=== PATIENT | female | born 2000 | race Caucasian/White ===

== ENCOUNTER 2022-10-13 11:20 | Outpatient (CLI) | payer MEDICAID, SELFPAY ==
--- NOTE | ~2022-10-13 | XR_ITS ---
AP view of the pelvis and AP and lateral views of the left hip Clinical history: Pain Findings: No acute fracture or dislocation is seen. Osseous alignment is anatomic. Bilateral hip and SI joint spaces are preserved. Soft tissues are unremarkable. Impression: No significant abnormality is seen. Reviewed, dictated and finalized at [facility]. Impression: No significant abnormality is seen.
== END 2022-10-13 11:21 | disposition home or self-care (01) ==
LOC: CHSIMG 11:26
PROVIDERS: PCP Nurse Practitioner Family; Visit Provider Nurse Practitioner Family
DX: M25.552 Pain in left hip (principal)
CPT/HCPCS: 73502

== ENCOUNTER 2022-10-28 14:59 | Outpatient (RCR) | payer MEDICAID, OTHER, SELFPAY ==
--- NOTE | 2022-10-28 16:05 | PTOPEVAL1 ---
Assessment and note entered by JT File, PT Evaluation Information Assessment Status Evaluation Diagnosis L hip pain, L knee instability Onset 10/20/22 Subjective Information patient reports she fell at work. she reports she was working at [employer] at the time of injury. she reports she slipped in a pile of flour. she reports she landed on the L hip. she reports to complicate matters she has a pre-existing injury to the L knee (valerie on her, give out on steps, instability when standing). she reports she has had this knee issue for a few months. regarding the L hip, she reports she has increased pain with sitting and standing for 1 hour or more. she reports heat helps with the pain, and pain meds did help. she reports she works at [employer] now. she reports she is unable to lay on the L side to sleep. prior to the fall, she reports she was having an electric pain in the L hip. Reported Pain Level Pain Score 9,7: Self Report Assessment PT Clinical Summary ms. lees is a 22 yo female who presents to skilled PT services for evaluation of L hip pain and L knee instability. she presents this date with signs and symptoms of lumbar spinal facet hypertropy, L greater trochanteric bursitis, and possible lateral meniscus injury to the L knee. she has decreased L hip rom, decreased L hip strength, L posterior hip/lower back pain, antalgic gait, and instability of the L knee. she would benefit from continued skilled PT services to improve her objective deficits and return to prior level functional activity performance and quality of life. Plan of Care Interventions Electrical Stimulation,Gait Training,Hot Pack/Cold Pack,Manual Therapy,Neuro Re-education,Patient/ Caregiver Educati,Therapeutic Activities, Therapeutic Exercise PT Services Indicated Yes Treatment Frequency and 3x weekly for 12 visits Duration These treatments will address the objective and functional deficits as defined above. The patient will be advanced safely and appropriately in order for the patient to progress towards his/her prior level of function. Additional exercises will be introduced and as well as a comprehensive home exercise program upon discharge, if needed, ?to ensure carryover of functional gains achieved in the clinic. This treatment plan has been reviewed and agreement upon by the patient.
--- NOTE | 2022-12-30 13:47 | PTOPDC ---
Assessment and note entered by JT File, PT Evaluation Information Assessment Status Discharge Diagnosis L hip pain, L knee instability Onset 10/20/22 Subjective Information patient reports she feels no better from therapy . she reports she feels the exercises have increased her pain in the lower back. Reported Pain Level Pain Score 8: Self Report Assessment PT Clinical Summary mrs. lees presents to skilled PT services for her 8th visit for lower back pain. she presents today having achieved for no goals for skilled PT, and feeling weorse in the lower back since starting therapy. she will DC skilled PT today and return to MD for follow up and to plan next steps in her care. Plan of Care PT Services Indicated Yes
== END 2022-12-30 14:13 | disposition home or self-care (01) ==
LOC: CHSPT 14:59
PROVIDERS: PCP Nurse Practitioner Family; Visit Provider Nurse Practitioner Family
DX: M25.552 Pain in left hip (principal); M25.362 Other instability, left knee
CPT/HCPCS: 36415; 80053; 80061; 82306; 83036; 84146; 84439; 84443; 85025; 96372; 97014; 97110; 97140; 97162; 99283; A9270; G0283; J1170

== ENCOUNTER 2022-11-09 14:01 | Emergency (ER) | payer MEDICAID, SELFPAY ==
[2022-11-09 14:01] VITALS: BP 138/92; PULSE 109; RESP 20; TEMP 36.9; O2SAT 96
--- NOTE | 2022-11-09 14:08 | ED.BACK ---
HPI - Back Pain/Injury General Chief Complaint: Back Pain/Injury Stated Complaint: right lower back pain Time Seen by Provider: 11/09/22 14:06 Source: patient Mode of arrival: ambulatory Limitations: no limitations History of Present Illness HPI Narrative: 22-year-old female with anxiety/depression, borderline personality disorder, PTSD, hemorrhoid/ aphasia, chronic low back pain with sciatica presents to the ER with -- low back pain which radiates down both lower extremities . --numbness and tingling of both lower extremities. No sensory motor loss. No bladder or bowel involvement. The patient was brought in by wheelchair which she was able to get up on the bed and get off the bed without any difficulty. The patient was prescribed oxycodone by primary care physician. She ran out of her medicines. She presents to the ER for pain management. The patient is scheduled to have an MRI tomorrow. MD elicited complaint: back pain Pertinent past history: prior back pain Onset (ago): day(s) Timing: constant Severity: moderate Similar Symptoms Previously: Yes Quality: aching Location: lumbar spine Radiation: left leg below the knee and right leg below the knee Exacerbating factors: movement Relieving factors: immobilization Associated symptoms: denies other symptoms Related Data Home Medications Medication Instructions Recorded Confirmed omeprazole 40 mg capsule,delayed 40 mg PO DAILY 10/13/22 11/09/22 release ondansetron HCl 4 mg tablet 4 mg PO Q8H 10/13/22 11/09/22 Allergies Allergy/AdvReac Type Severity Reaction Status Date / Time naproxen AdvReac Nausea Verified 11/09/22 14:09 monistat AdvReac Severe Irritable Uncoded 11/03/22 15:50 Review of Systems Review of Systems: All systems reviewed & are unremarkable except as noted in HPI and below Constitutional: Constitutional: Reports as per HPI and Reports no additional constitutional complaints Eyes: Eyes: Reports as per HPI and Reports no additional eye complaints ENT: Reports system reviewed and no additional complaints, except as documented and Reports as per HPI Cardiovascular: Cardiovascular: Reports as per HPI and Reports no additional cardiovascular complaints Respiratory: Respiratory: Reports as per HPI and Reports no additional respiratory complaints Gastrointestinal: Gastrointestinal: Reports as per HPI and Reports no additional gastrointestinal complaints Musculoskeletal: Musculoskeletal: Reports no additional musculoskeletal complaints, Reports as per HPI and Reports back pain Integumentary/Breasts: Skin/Breast: Reports system reviewed and no additional complaints, except as docu and Reports as per HPI Neurologic: Reports system reviewed and no additional complaints, except as documented, Reports as per HPI and Reports numbness Comments: Numbness both upper extremities Psychiatric: Psychiatric: Reports no additional psychiatric complaints, Reports as per HPI, Reports anxiety and Reports depression Endocrine: Endocrine: Reports no additional endocrine complaints and Reports as per HPI Hematologic/Lymphatic: Hematologic/Lymphatic: Reports no additional hematologic/lymphatic complaints and Reports as per HPI Allergic/Immunologic: Allergic/Immunologic: Reports no additional allergic/immunologic complaints and Reports as per HPI PMFSH Past Medical History Medical History ADHD Anxiety Borderline personality disorder Depression Hemorrhoids PTSD (post-traumatic stress disorder) Social History Social History Smoking status: Former smoker Tobacco type: e-cigarettes/vaping Smoking end date: 09/19/22 Alcohol intake: never Substance use: current Substance use type: marijuana Living arrangements: with family Occupation/Education: occupation Gender identity (if verbalized by the patient): Female Agree to blood produc
[2022-11-09] MEDS: HYDROmorphone HCL INJ (*CRX) 2 MG/ML VIAL 1 MG IM (14:37)
[2022-11-09] MEDS: ONDANSETRON HCL ODT 4 MG TABLET PO (14:37)
== END 2022-11-09 14:45 | disposition home or self-care (01) ==
PROVIDERS: Emergency Provider Internal Medicine Critical Care Medicine; PCP Nurse Practitioner Family
DX: M54.42 Lumbago with sciatica, left side (principal); F41.9 Anxiety disorder, unspecified; F32.A Depression, unspecified; F60.3 Borderline personality disorder; F43.10 Post-traumatic stress disorder, unspecified; Z87.891 Personal history of nicotine dependence; F12.90 Cannabis use, unspecified, uncomplicated
CPT/HCPCS: 96372; 99283; A9270; J1170

== ENCOUNTER 2022-11-10 08:53 | Outpatient (CLI) | payer MEDICAID, SELFPAY ==
--- NOTE | ~2022-11-10 | MR_ITS ---
MRI of the left hip Clinical history: Pain Technique: Coronal T1-weighted, T2-weighted, and proton-density fat-sat images, and axial T1-weighted and proton-density fat-sat images were acquired through the pelvis. Coronal T2-weighted images and c oronal, axial, and sagittal proton-density fat-sat images were acquired through the left hip. Follow ing intravenous administration of 20 cc MultiHance gadolinium, T1-weighted fat-sat imaging was perfor med in the axial and coronal planes. Findings: There is no fracture, avascular necrosis, transient suppresses of either hip. Bone marrow s ignals of the proximal femora and visual is pelvic bones are unremarkable. Bilateral hip and SI joint spaces are preserved. No erosive or degenerative change seen. No joint effusion evident. No acetabul ar labral tear identified. Visualized musculature about the pelvis and left hip is unremarkable. No muscle atrophy or edema iden tified. No soft tissue mass or fluid collection. No evidence for bursitis. Visualized tendons are int act. No abnormal postcontrast enhancement identified. IMPRESSION: Unremarkable exam. Reviewed, dictated and finalized at location M. IMPRESSION: Unremarkable exam.
--- NOTE | ~2022-11-10 | MR_ITS ---
MRI of the lumbar spine Clinical History: Back pain, status post fall Technique: Axial T2-weighted images, and sagittal T1-weighted, T2-weighted, and T2 fat-sat images wer e acquired. Following intravenous administration of 20 cc MultiHance gadolinium, T1-weighted fat-sat imaging was performed in the axial and sagittal planes. Findings: There is no fracture or subluxation of the lumbar spine. Vertebral bodies maintain normal h eight and alignment. No bone marrow signal abnormality seen. At L1-L2, L2-L3, L3-L4, intervertebral discs maintain normal signal and position. No disc bulge or he rniation at these levels. No spinal canal stenosis or neural foraminal narrowing at these levels. At L4-L5, there is mild central disc protrusion with mild disc desiccation. There is mild facet arthr opathy. No spinal canal stenosis or neural foraminal narrowing. At L5-S1, there is no disc bulge or herniation. No spinal canal stenosis or neural foraminal narrowin g. Paravertebral soft tissues are unremarkable. No abnormal postcontrast enhancement identified. Impression: Minimal degenerative change at the L4-L5 level, as above. Reviewed, dictated and finalized at location . Impression: Minimal degenerative change at the L4-L5 level, as above.
== END 2022-11-10 08:54 | disposition home or self-care (01) ==
LOC: CHSIMG 08:56
PROVIDERS: PCP Nurse Practitioner Family; Visit Provider Nurse Practitioner Family
DX: G95.9 Disease of spinal cord, unspecified (principal)
CPT/HCPCS: 72158; 73723; A9577

== ENCOUNTER 2022-11-28 10:14 | Emergency (ER) | payer OTHER, SELFPAY ==
--- NOTE | ~2022-11-28 | XR_ITS ---
XR lumbar spine 2-3V 11/28/2022 10:49 Indication: Low back pain Procedure: 3 views lumbar spine Comparison: No prior studies for comparison. Findings: Vertebral body and disc heights are preserved. No fracture, subluxation or dislocation. No evidence for spondylolisthesis. Pedicles intact. Sacral foramen are symmetric. Normal lumbar alignmen t. Impression: 1: No acute abnormality of the lumbar spine. Reviewed, dictated and finalized at location [] Impression: 1: No acute abnormality of the lumbar spine.
[2022-11-28 10:14] VITALS: BP 103/74; PULSE 114; RESP 18; TEMP 36.5; O2SAT 96
--- NOTE | 2022-11-28 10:28 | ED.GENADULT ---
HPI - General Adult General Chief complaint: Back Pain/Injury Stated complaint: lower back pain and numbness in legs Time Seen by Provider: 11/28/22 10:23 History of Present Illness HPI narrative: Hal is a 22F with a PMH of mood/personality disorder and degenerative disc disease that presented to the ED with back pain. She has had chronic back pain but she had a ground level fall at work a few days ago Since that time she has had worsening numbness in her right leg. There is no paralysis or loss of bowl or bladder control. It is not helped with her home duloxetine, Flexeril, or hydrocodone. Related Data Home Medications Medication Instructions Recorded Confirmed ondansetron HCl 4 mg tablet 4 mg PO Q8H 10/13/22 11/28/22 Allergies Allergy/AdvReac Type Severity Reaction Status Date / Time naproxen AdvReac Nausea Verified 11/28/22 10:24 monistat AdvReac Severe Irritable Uncoded 11/21/22 22:38 Review of Systems Review of Systems: All systems reviewed & are unremarkable except as noted in HPI and below [facility] Past Medical History Medical History ADHD Anxiety Borderline personality disorder Depression Hemorrhoids PTSD (post-traumatic stress disorder) Social History Social History Smoking status: Former smoker Tobacco type: e-cigarettes/vaping Smoking end date: 09/19/22 Alcohol intake: never Substance use: current Substance use type: marijuana Living arrangements: with family Occupation/Education: occupation Gender identity (if verbalized by the patient): Female Agree to blood products: Yes Exam Const: General: healthy appearing and no acute distress Nutritional Appearance: well nourished Orientation/consciousness: patient oriented x3 HENMT: Head: normal to inspection Ears: external ears normal Face/Nose/Sinus: Normal external nose present Eyes: Conjunctivae: conjunctivae normal Pupils: Equal, round and reactive pupils present EOM: EOMs intact bilaterally Neck: Neck: normal visual inspection Chest: Chest palpation & inspection: normal inspection of the chest Resp: Effort & Inspection: normal respiratory effort Cardio: Rate: regular rate Back/Spine/Pelvis: Other: TTP in the lumbar midline and the paraspinal musculature Skin: General skin exam: normal color Rashes: no rashes Neuro: General: patient oriented x3 and moves all extremities Cranial nerves: Yes Nystagmus not present Other: 5/5 strength throughout the lower extremities She did have sensation throughout the right lower extremity but stated it felt numb Extrem: General: normal to inspection Psych: Mental Status: mental status grossly normal Course Course Emergency Course: Ordered radiographs given new fall and gabapentin. XR lumbar spine 2-3V 11/28/2022 10:49 Indication: Low back pain Procedure: 3 views lumbar spine Comparison: No prior studies for comparison. Findings: Vertebral body and disc heights are preserved. No fracture, subluxation or dislocation. No evidence for spondylolisthesis. Pedicles intact. Sacral foramen are symmetric. Normal lumbar alignment. Impression: 1: No acute abnormality of the lumbar spine. Vital Signs Vital signs: Vital Signs Temperature 97.7 F 11/28/22 10:14 Pulse Rate 114 H 11/28/22 10:14 Respiratory Rate 18 11/28/22 10:14 Blood Pressure 103/74 11/28/22 10:14 Pulse Oximetry 96 11/28/22 10:14 Oxygen Delivery Room Air 11/28/22 10:14 Temperature 97.7 F 11/28/22 10:14 Pulse Rate 90 11/28/22 11:34 Respiratory Rate 16 11/28/22 11:34 Blood Pressure 120/82 11/28/22 11:34 Pulse Oximetry 97 11/28/22 11:34 Oxygen Delivery Room Air 11/28/22 11:34 Medical Decision Making Vital Signs Vital Signs: Vital Signs Temperature 97.7 F 11/28/22 10:14 Pulse Rate 114 H 11/28/22 10:14 Respiratory Rate 18
[2022-11-28] MEDS: GABAPENTIN 300 MG CAPSULE 600 MG PO (10:41)
[2022-11-28 11:34] VITALS: BP 120/82; PULSE 90; RESP 16; O2SAT 97
== END 2022-11-28 11:25 | disposition home or self-care (01) ==
PROVIDERS: Emergency Provider Family Medicine; PCP Nurse Practitioner Family
DX: M54.30 Sciatica, unspecified side (principal); Z87.891 Personal history of nicotine dependence
CPT/HCPCS: 72100; 99283; A9270

== ENCOUNTER 2022-12-02 10:47 | Outpatient (CLI) | payer OTHER, SELFPAY ==
[2022-12-02 11:12] LABS: Basophils Absolute Auto 0.05 K/mm3 (0.00-0.10); Basophils Percent Auto 0.6 % (0.0-1.0); Eosinophils Absolute Auto 0.29 K/mm3 (0.02-0.50); Eosinophils Percent Auto 3.6 % (1.0-6.0); Hematocrit 40.5 % (35.0-49.0); Hemoglobin 13.4 g/dL (12.0-15.0); Immature Granulocyte Absolute 0.02 K/mm3 (0.00-0.00); Immature Granulocyte Percent A 0.2 % (0.0-0.0); Lymphocytes Absolute Auto 1.93 K/mm3 (1.10-4.50); Mean Corpuscular HGB Conc 33.1 g/dL (32.0-36.0); Mean Corpuscular Hemoglobin 29.7 pg (27.0-31.0); Mean Corpuscular Volume 89.8 fL (78.0-102.0); Mean Platelet Volume 9.8 fl (9.2-11.8); Monocytes Absolute Auto 0.42 K/mm3 (0.10-0.90); Monocytes Percent Auto 5.2 % (2.0-11.0); Neutrophils Absolute Auto 5.3 K/mm3 (1.7-7.2); Neutrophils Percent Auto 66.4 % (50.0-70.0); Platelet Count Result 275 K/mm3 (150-420); Red Blood Count 4.51 M/mm3 (4.20-5.40); Red Cell Distribution Width 12.7 % (11.6-14.4)
[2022-12-02 11:24] LABS: Hemoglobin A1C 4.9 % (<5.7)
[2022-12-02 12:25] LABS: Alanine Aminotransferase 57 U/L (14-59); Albumin Level 3.8 g/dL (3.4-5.0); Alkaline Phosphatase 90 U/L (46-116); Anion Gap 10 mmol/L (8-16); Aspartate Amino Transferase 28 U/L (15-37); Bilirubin,Total 0.3 mg/dL (0.00-1.00); Blood Urea Nitrogen 11 mg/dL (7-18); Carbon Dioxide 26 mmol/L (21-32); Chloride 104 mmol/L (98-108); Cholesterol 157 mg/dL (0-200); Estimated Glomerular Filt Rate > 60; Free T4 Free Thyroxine 0.78 ng/dL (0.76-1.46); Glucose 93 mg/dL (70-99); HDL Direct 35 mg/dL (40-60); LDL Cholesterol Calculated 102 mg/dL (<130); Osmolality Calculated 289 mOsm/kg (285-295); Potassium 4.2 mmol/L (3.5-5.1); Sodium 140 mmol/L (136-145); Thyroid Stimulating Hormone 1.51 uIU/mL (0.36-3.74); Total Protein 6.8 g/dL (6.4-8.2); Triglycerides 99 mg/dL (0-150)
[2022-12-06 23:53] LABS: Vitamin D 25 Hydroxy 26 ng/mL (30-100)
[2022-12-07 14:51] LABS: Prolactin 23.2 ng/mL (***)
== END 2022-12-02 10:48 | disposition home or self-care (01) ==
LOC: CHSLAB 10:52
PROVIDERS: PCP Nurse Practitioner Family
DX: Z79.899 Other long term (current) drug therapy (principal)
CPT/HCPCS: 36415; 80053; 80061; 82306; 83036; 84146; 84439; 84443; 85025

== ENCOUNTER 2022-12-22 16:20 | Emergency (ER) | payer OTHER, SELFPAY ==
[2022-12-22 16:22] VITALS: BP 116/88; PULSE 88; RESP 17; TEMP 36.6; O2SAT 98
--- NOTE | 2022-12-22 16:41 | ED.EXTPRO ---
HPI - Extremity Problem General Chief complaint: Extremity Problem,Nontraumatic Stated complaint: leg spasms Time Seen by Provider: 12/22/22 16:22 Source: patient and family Mode of arrival: ambulatory Limitations: no limitations History of Present Illness HPI Narrative: This is a 22-year-old female with some history of psychological issues presents with cramping and twitching in her lower extremities bilaterally started the last couple days and intensified over the last few hours patient states that she has not been drinking fluids that she drinks only Tea otherwise there is no chest pain no shortness of breath no fever chills with no nausea or vomiting no diarrhea constipation. Complaint: other Onset (ago): day(s) Pain Consistency: intermittent Location: lower extremity Related Data Home Medications Medication Instructions Recorded Confirmed ondansetron HCl 4 mg tablet 4 mg PO Q8H 10/13/22 12/22/22 Allergies Allergy/AdvReac Type Severity Reaction Status Date / Time naproxen AdvReac Nausea Verified 12/22/22 16:21 monistat AdvReac Severe Irritable Uncoded 12/22/22 16:21 Review of Systems Review of Systems: All systems reviewed & are unremarkable except as noted in HPI and below PMFSH Past Medical History Medical History ADHD Anxiety Borderline personality disorder Depression Hemorrhoids PTSD (post-traumatic stress disorder) Social History Social History Smoking status: Current every day smoker (marijuana) Tobacco type: e-cigarettes/vaping Smoking end date: 09/19/22 Alcohol intake: never Substance use: current Substance use type: marijuana Living arrangements: with family Occupation/Education: occupation Gender identity (if verbalized by the patient): Female Agree to blood products: Yes Exam Const: General: healthy appearing Nutritional Appearance: well nourished Orientation/consciousness: patient oriented x3 Limitations: no limitations HENMT: Head: normal to inspection Neck: Neck: normal visual inspection, no lymphadenopathy and no meningeal signs Chest: Chest palpation & inspection: normal inspection of the chest Resp: Effort & Inspection: normal respiratory effort Auscultation: clear to auscultation bilaterally Cardio: Rate: regular rate Rhythm: regular rhythm : General: Yes bladder normal to palpation Skin: General skin exam: normal color Rashes: no rashes Wounds: no wounds Neuro: General: patient oriented x3, moves all extremities and no meningeal signs Extrem: General: normal to inspection, no clubbing, cyanosis or edema and no pedal edema Psych: Mental Status: mental status grossly normal Affect: normal affect Course Course Emergency Course: Labs including electrolytes were reviewed with the magnesium and CMP and a CK level and reviewed with patient, currently no nausea vomiting will start IV fluids and give her a L of normal saline. Vital Signs Vital signs: Vital Signs Temperature 36.6 C 12/22/22 16:22 Pulse Rate 88 12/22/22 16:22 Respiratory Rate 17 12/22/22 16:22 Blood Pressure 116/88 12/22/22 16:22 Pulse Oximetry 98 12/22/22 16:22 Oxygen Delivery Room Air 12/22/22 16:22 Temperature 36.6 C 12/22/22 16:22 Pulse Rate 88 12/22/22 16:22 Respiratory Rate 17 12/22/22 16:22 Blood Pressure 116/88 12/22/22 16:22 Pulse Oximetry 98 12/22/22 16:22 Oxygen Delivery Room Air 12/22/22 16:22 Critical Care Time Critical Care Time Critical Care Time: No Discharge Plan Discharge Clinical Impression: Dehydration Patient Disposition: Home, Self-Care Condition: Stable Instructions: Antibiotic Form, Dehydration (ED) Additional Instructions: advised to drink plenty of water and follow up with primary for further evaluation and treatment. Prescriptions: No Action gabapentin 300
[2022-12-22] MEDS: SODIUM CHLORIDE 0.9% IV 1,000 ML 999 ML IV CONT (16:51)
[2022-12-22 17:04] LABS: Alanine Aminotransferase 497 U/L (14-59); Alkaline Phosphatase 80 U/L (46-116); Anion Gap 9 mmol/L (8-16); Aspartate Amino Transferase 182 U/L (15-37); Bilirubin,Total 0.6 mg/dL (0.00-1.00); Blood Urea Nitrogen 9 mg/dL (7-18); Calcium 9.1 mg/dL (8.5-10.1); Carbon Dioxide 27 mmol/L (21-32); Chloride 104 mmol/L (98-108); Creatine Kinase 220 U/L (26-192); Estimated Glomerular Filt Rate > 60; Glucose 101 mg/dL (70-99); Magnesium 2.2 mg/dL (1.8-2.4); Osmolality Calculated 288 mOsm/kg (285-295); Sodium 140 mmol/L (136-145); Total Protein 7.9 g/dL (6.4-8.2)
[2022-12-22 17:37] VITALS: BP 129/75; PULSE 81; RESP 17; TEMP 36.7; O2SAT 98
== END 2022-12-22 17:40 | disposition home or self-care (01) ==
PROVIDERS: Emergency Provider Emergency Medicine; PCP Nurse Practitioner Family
DX: E86.0 Dehydration (principal); F17.290 Nicotine dependence, other tobacco product, uncomplicated
CPT/HCPCS: 36415; 80053; 82550; 83735; 96360; 97014; 97110; 97140; 99283; G0283; J7030

== ENCOUNTER 2022-12-27 15:06 | Outpatient (CLI) | payer OTHER, SELFPAY ==
[2022-12-27 15:23] LABS: Basophils Absolute Auto 0.06 K/mm3 (0.00-0.10); Basophils Percent Auto 0.6 % (0.0-1.0); Eosinophils Absolute Auto 0.19 K/mm3 (0.02-0.50); Hematocrit 42.9 % (35.0-49.0); Hemoglobin 14.5 g/dL (12.0-15.0); Immature Granulocyte Absolute 0.02 K/mm3 (0.00-0.00); Immature Granulocyte Percent A 0.2 % (0.0-0.0); Lymphocytes Absolute Auto 2.44 K/mm3 (1.10-4.50); Lymphocytes Percent Auto 25.4 % (18.0-42.0); Mean Corpuscular HGB Conc 33.8 g/dL (32.0-36.0); Mean Corpuscular Hemoglobin 30.3 pg (27.0-31.0); Mean Corpuscular Volume 89.7 fL (78.0-102.0); Mean Platelet Volume 9.8 fl (9.2-11.8); Monocytes Absolute Auto 0.53 K/mm3 (0.10-0.90); Monocytes Percent Auto 5.5 % (2.0-11.0); Neutrophils Absolute Auto 6.4 K/mm3 (1.7-7.2); Neutrophils Percent Auto 66.3 % (50.0-70.0); Platelet Count Result 347 K/mm3 (150-420); Red Blood Count 4.78 M/mm3 (4.20-5.40); White Blood Count 9.6 K/mm3 (4.8-10.8)
[2022-12-27 15:33] LABS: Bilirubin Urine Negative (Negative); Blood Urine Negative (Negative); Color Urine Yellow (Yellow); Glucose Urine UA Negative (Negative); Ketones Urine Trace (Negative); Leukocyte Esterase Ur Trace (Negative); Nitrate Urine Negative (Negative); Protein Urine Negative (Negative); Specific Grav Ur 1.025 (1.010-1.020); Urobilinogen Urine 0.2 mg/dL (0.2-1.0)
[2022-12-27 15:47] LABS: Add Urine Microscopic? YES; Appearance Urine Cloudy (Clear); Bacteria Urine 2+ /hpf; RBC Urine None seen /hpf (0-2); Squamous Epithelial Cell Urine Moderate /hpf (Few); WBC Urine 0-3 /hpf (0-3)
[2022-12-27 15:52] LABS: Amphetamine Screen Urine Negative (Negative); Barbiturate Screen Urine Negative (Negative); Benzodiazepines Screen Urine Negative (Negative); Cannabinoid Screen Urine Positive (Negative); Cocaine Screen Urine Negative (Negative); Methadone Screen Urine Negative (Negative); Opiate Screen Urine Negative (Negative); Phencyclidine Screen Urine Negative (Negative)
[2022-12-27 16:12] LABS: Alanine Aminotransferase 211 U/L (14-59); Albumin Level 4.3 g/dL (3.4-5.0); Alkaline Phosphatase 88 U/L (46-116); Anion Gap 7 mmol/L (8-16); Aspartate Amino Transferase 46 U/L (15-37); Bilirubin,Total 0.5 mg/dL (0.00-1.00); Blood Urea Nitrogen 10 mg/dL (7-18); Calcium 9.4 mg/dL (8.5-10.1); Carbon Dioxide 29 mmol/L (21-32); Chloride 104 mmol/L (98-108); Estimated Glomerular Filt Rate > 60; Ferritin 52 ng/mL (8-252); Glucose 91 mg/dL (70-99); Lipase 20 U/L (16-77); Osmolality Calculated 289 mOsm/kg (285-295); Potassium 3.7 mmol/L (3.5-5.1); Sodium 140 mmol/L (136-145); Total Protein 7.6 g/dL (6.4-8.2)
[2022-12-27 16:13] LABS: CRP < 0.5 mg/dL (0.0-0.9)
[2022-12-31 15:22] LABS: Hepatitis A Antibody IgM Nonreactive; Hepatitis B Core Antibody Nonreactive (Nonreactive); Hepatitis B Surface Antigen Nonreactive (Nonreactive); Hepatitis C Virus Antibody Nonreactive
== END 2022-12-27 15:07 | disposition home or self-care (01) ==
PROVIDERS: PCP Nurse Practitioner Family; Visit Provider Nurse Practitioner Family
DX: R74.8 Abnormal levels of other serum enzymes (principal); R25.1 Tremor, unspecified
CPT/HCPCS: 36415; 80053; 80074; 80307; 81001; 82728; 83690; 85025; 86140; 97110

== ENCOUNTER 2022-12-29 07:43 | Outpatient (CLI) | payer OTHER, SELFPAY ==
--- NOTE | ~2022-12-29 | US_ITS ---
Abdominal Sonogram: Real-time sonographic imaging of the abdomen was performed. Clinical History: Abnormal serum enzyme levels Findings: The liver appears echogenic, with no evidence of mass lesion or bile duct dilatation. Main portal vein demonstrates normal direction of flow. The spleen is normal in size without evidence of focal lesion. The gallbladder is well distended, and appears normal with no evidence of gallstone or wall thickening. The common bile duct measures 4 mm. The visualized pancreas, aorta, and IVC are un remarkable. The right kidney measures 9.5 cm in length and the left kidney measures 10.2 cm. There is no hydronephrosis or renal calculus. Impression: Diffuse fatty infiltration of the liver. Reviewed, dictated and finalized at location M. Impression: Diffuse fatty infiltration of the liver.
== END 2022-12-29 07:44 | disposition home or self-care (01) ==
LOC: CHSIMG 07:44
PROVIDERS: PCP Nurse Practitioner Family; Visit Provider Nurse Practitioner Family
DX: R74.8 Abnormal levels of other serum enzymes (principal); K76.0 Fatty (change of) liver, not elsewhere classified
CPT/HCPCS: 76700

== ENCOUNTER 2022-12-30 15:44 | Outpatient (CLI) | payer OTHER, SELFPAY ==
[2022-12-30 16:18] LABS: NT Pro B Type Natriuretic Pept 27 pg/mL (0-125)
[2023-01-03 20:12] LABS: CK-BB None Detected (None Detected); CK-MB 0 % (<5); CK-MM 100 % (95-100)
== END 2022-12-30 15:45 | disposition home or self-care (01) ==
LOC: CHSLAB 15:46
PROVIDERS: PCP Nurse Practitioner Family; Visit Provider Nurse Practitioner Family
DX: R74.8 Abnormal levels of other serum enzymes (principal)
CPT/HCPCS: 36415; 82550; 82552; 83880; 97014; 97110; G0283

== ENCOUNTER 2023-01-02 09:07 | Outpatient (CLI) | payer OTHER, SELFPAY ==
--- NOTE | 2023-01-02 09:15 | ECG_ITS ---
Measurements Intervals [place] Rate: 84 P: 20 TX: 132 QRS: 49 QRSD: 92 T: 44 QT: 360 QTc: 426 Interpretive Statements SINUS RHYTHM BASELINE WANDER- V4-V6 NORMAL ECG NO PREVIOUS ECG AVAILABLE FOR COMPARISON Electronically Signed On 01-02-2023 9:37:29 CDT by Karthikeyan Polk D.O.
== END 2023-01-02 09:08 | disposition home or self-care (01) ==
LOC: CHSCARD 09:09
PROVIDERS: PCP Nurse Practitioner Family; Visit Provider Nurse Practitioner Family
DX: R74.8 Abnormal levels of other serum enzymes (principal)
CPT/HCPCS: 93005

== ENCOUNTER 2023-01-18 15:16 | Outpatient (NON) | payer OTHER, SELFPAY | END 2023-01-18 15:17 | disposition home or self-care (01) | LOC: CHSLAB 15:17 | PROVIDERS: Visit Provider Nurse Practitioner Family | DX: R21 Rash and other nonspecific skin eruption (principal) | CPT/HCPCS: 87070; 87075; 87205 ==

== ENCOUNTER 2023-02-02 20:21 | Emergency (ER) | payer OTHER, SELFPAY ==
[2023-02-02 20:29] VITALS: BP 136/90; PULSE 91; RESP 18; TEMP 37; O2SAT 98
[2023-02-02] MEDS: KETOROLAC 30 MG/ML VIAL (*BKC) IV PUSH (20:54)
[2023-02-02] MEDS: ONDANSETRON INJ 4 MG/2 ML VIAL IV PUSH (21:00)
[2023-02-02] MEDS: SODIUM CHLORIDE 0.9% IV 1,000 ML 999 ML IV CONT (21:00)
--- NOTE | 2023-02-02 21:18 | ED.NAVMDI ---
HPI - Nausea/Vomiting/Diarrhea General Chief complaint: Nausea/Vomiting/Diarrhea Stated complaint: vomiting/lower flank pain Time Seen by Provider: 02/02/23 20:42 Source: patient Mode of arrival: ambulatory Limitations: no limitations History of Present Illness HPI Narrative: this is a 22-year-old female with a history of sciatic back pain presents tonight with some nausea vomiting and diarrhea and patient states that with the nausea and episodes of vomiting she aggravated her sciatic nerve, vitals are stable there is no fever chills no abdominal pain no flank pain. MD elicited complaint: nausea, vomiting and diarrhea Related Data Home Medications Medication Instructions Recorded Confirmed ondansetron HCl 4 mg tablet 4 mg PO Q8H 10/13/22 02/01/23 trazodone 100 mg tablet 100 mg PO QHS PRN 12/27/22 02/01/23 venlafaxine 75 mg capsule,extended 75 mg PO DAILY 12/27/22 02/01/23 release 24 hr (Effexor XR) colestipol 1 gram tablet 1 g PO ONCE 01/03/23 02/01/23 diphenhydramine HCl 25 mg capsule 25 mg PO QHS PRN 01/03/23 02/01/23 (Allergy (diphenhydramine)) ergocalciferol (vitamin D2) 1,250 1,250 mcg PO WEEKLY 01/03/23 02/01/23 mcg (50,000 unit) capsule ibuprofen 800 mg tablet 800 mg PO TID 01/03/23 02/01/23 lurasidone 60 mg tablet (Latuda) 60 mg PO DAILY 01/03/23 02/01/23 trazodone 50 mg tablet 50 mg PO QHS PRN 01/03/23 02/01/23 Allergies Allergy/AdvReac Type Severity Reaction Status Date / Time naproxen AdvReac Nausea Verified 02/01/23 08:43 monistat AdvReac Severe Irritable Uncoded 02/01/23 08:43 Review of Systems Review of Systems: All systems reviewed & are unremarkable except as noted in HPI and below PMFSH Past Medical History Medical History ADHD Anxiety Borderline personality disorder Depression Hemorrhoids PTSD (post-traumatic stress disorder) Social History Social History Smoking status: Current every day smoker Tobacco type: e-cigarettes/vaping Smoking end date: 09/19/22 Alcohol intake: never Substance use: current Substance use type: marijuana Living arrangements: with family Occupation/Education: occupation Gender identity (if verbalized by the patient): Female Agree to blood products: Yes Exam Const: General: healthy appearing Nutritional Appearance: well nourished Orientation/consciousness: patient oriented x3 Neck: Neck: normal visual inspection, no lymphadenopathy and no meningeal signs Chest: Chest palpation & inspection: normal inspection of the chest Resp: Effort & Inspection: normal respiratory effort Auscultation: clear to auscultation bilaterally Cardio: Rate: regular rate Rhythm: regular rhythm GI: GI Palp: Yes Soft to palpation Auscultation: normal bowel sounds Skin: General skin exam: normal color Rashes: no rashes Wounds: no wounds Neuro: General: patient oriented x3 Cranial nerves: Yes Nystagmus not present Extrem: General: normal to inspection Psych: Mental Status: mental status grossly normal Affect: normal affect Course Course Emergency Course: Patient received about 200cc of IV fluids along with Zofran and Toradol, patient decided that she was ready to go home and in 1 a stay in the ER any longer. Otherwise she is doing well no episode of vomiting pain level. Vital Signs Vital signs: Vital Signs Temperature 37.0 C 02/02/23 20:29 Pulse Rate 91 02/02/23 20:29 Respiratory Rate 18 02/02/23 20:29 Blood Pressure 136/90 02/02/23 20:29 Pulse Oximetry 98 02/02/23 20:29 Oxygen Delivery Room Air 02/02/23 20:29 Temperature 37.0 C 02/02/23 20:29 Pulse Rate 91 02/02/23 20:29 Respiratory Rate 18 02/02/23 20:29 Blood Pressure 136/90 02/02/23 20:29 Pulse Oximetry 98 02/02/23 20:29 Oxygen Delivery Room Air 02/02/23 20:29 Critical Care Time Critical Care Time Critical Care Time:
--- NOTE | 2023-02-02 21:21 | PC.NURSE ---
Pt called this RN to rm and states she is feeling better since given the nausea and pain med and wants to go home. She is requesting Zofran ODT to take if needed and a work note for tomorrow. ERP given info.
[2023-02-02 21:25] VITALS: BP 128/85; PULSE 85; RESP 18; TEMP 36.6; O2SAT 99
== END 2023-02-02 21:26 | disposition home or self-care (01) ==
PROVIDERS: Emergency Provider Emergency Medicine; PCP Nurse Practitioner Family
DX: K52.9 Noninfective gastroenteritis and colitis, unspecified (principal); F90.9 Attention-deficit hyperactivity disorder, unspecified type; F32.A Depression, unspecified; F41.9 Anxiety disorder, unspecified; F60.3 Borderline personality disorder; F43.10 Post-traumatic stress disorder, unspecified; F17.290 Nicotine dependence, other tobacco product, uncomplicated; F12.90 Cannabis use, unspecified, uncomplicated
CPT/HCPCS: 96374; 96375; 99284; J1885; J2405; J7030

== ENCOUNTER 2023-02-14 09:53 | Outpatient (CLI) | payer OTHER, SELFPAY | END 2023-02-14 09:54 | disposition home or self-care (01) | PROVIDERS: PCP Nurse Practitioner Family; Visit Provider Nurse Practitioner Family | DX: M25.361 Other instability, right knee (principal) | CPT/HCPCS: 73562 ==

== ENCOUNTER 2023-02-16 15:17 | Outpatient (RCR) | payer OTHER, SELFPAY ==
--- NOTE | 2023-02-16 16:07 | PTOPEVAL1 ---
Assessment and note entered by Lilibeth Richardson DPT Evaluation Information Assessment Status Evaluation Diagnosis R knee pain Onset 02/14/23 Subjective Information Patient reports she was going up stairs and fell onto her R knee. She reports instant pain. She reports since then she has had popping at the knee . She reports pain is at anterior/medial knee. She reports she was wearing a knee brace due to decreased stability. She has had an xray done that was negative. She reports pain is worse with standing, squatting and stair navigation. She reports she works at [employer] and is on her feet all day. Reported Pain Level Pain Score 3: Self Report Assessment PT Clinical Summary Patient is a 22 year old female who presents to PT with R knee pain following fall. Patient demonstrates decreased R knee ROM, decreased R knee strength and tenderness to the medial patella impairing her ability to stand for prolonged periods, squat for house hold and work tasks and navigate stairs. She would benefit from skilled PT to address impairments and return to PLOF. Plan of Care Interventions Electrical Stimulation,Gait Training,Hot Pack/Cold Pack,Manual Therapy,Neuro Re-education,Patient/ Caregiver Educati,Therapeutic Activities, Therapeutic Exercise PT Services Indicated Yes Treatment Frequency and 2x weekly for 10 visits Duration These treatments will address the objective and functional deficits as defined above. The patient will be advanced safely and appropriately in order for the patient to progress towards his/her prior level of function. Additional exercises will be introduced and as well as a comprehensive home exercise program upon discharge, if needed, ?to ensure carryover of functional gains achieved in the clinic. This treatment plan has been reviewed and agreement upon by the patient.
--- NOTE | 2023-02-16 16:07 | OPREHPOC ---
Outpatient Therapy Plan of Care This is a Multidisciplinary Plan of Care that may contain components documented by all disciplines (PT, OT, and ST.) PT Problem 1 PT Problem #1 Knowledge Deficit PT Goal 1 Goal Patient to demonstrate independence with HEP Target Visit 5 PT Problem 2 PT Problem #2 Pain PT Goal 1 Goal Patient to report highest pain at 2/10 Target Visit 10 PT Problem 3 PT Problem #3 Impaired Range of Motion PT Goal 1 Goal Patien to demonstrate R knee AROM from 0-135 deg to return to stair navigation at PLOF Target Visit 10 PT Problem 4 PT Problem #4 Impaired Strength PT Goal 1 Goal Patient to demonstrate 5/5 strength of R knee to return to squatting for house hold and works tasks at PLOF Target Visit 10 PT Problem 5 PT Problem #5 Impaired Functional Mobil PT Goal 1 Goal 1. Patient to report ability to stand for >30 minutes with no increase in pain 2. Patient to demonstrate 20% improvement in LEFS Target Visit 10
--- NOTE | 2023-03-06 11:08 | OPREHPOC ---
Outpatient Therapy Plan of Care This is a Multidisciplinary Plan of Care that may contain components documented by all disciplines (PT, OT, and ST.) PT Problem 1 PT Problem #1 Knowledge Deficit PT Goal 1 Goal Patient to demonstrate independence with HEP Target Visit 5 Progress Met PT Problem 2 PT Problem #2 Pain PT Goal 1 Goal Patient to report highest pain at 2/10 Target Visit 10 Progress Not Met PT Problem 3 PT Problem #3 Impaired Range of Motion PT Goal 1 Goal Patien to demonstrate R knee AROM from 0-135 deg to return to stair navigation at PLOF Target Visit 10 Progress Not Met PT Problem 4 PT Problem #4 Impaired Strength PT Goal 1 Goal Patient to demonstrate 5/5 strength of R knee to return to squatting for house hold and works tasks at PLOF Target Visit 10 Progress Met PT Problem 5 PT Problem #5 Impaired Functional Mobil PT Goal 1 Goal 1. Patient to report ability to stand for >30 minutes with no increase in pain 2. Patient to demonstrate 20% improvement in LEFS Target Visit 10 Progress Not Met
--- NOTE | 2023-03-06 11:09 | PTOPDC ---
Assessment and note entered by Lilibeth Richardson DPT Evaluation Information Assessment Status Re-evaluation Diagnosis R knee pain Onset 02/14/23 Subjective Information Patient reports knee has improved since start of PT. She reports that she can navigate stairs without difficulty at this time. She reports she does have some onset of pain with standing for long periods of time. She is independent with HEP Reported Pain Level Pain Score 4: Self Report Assessment PT Clinical Summary Patient was seen for 5 visits of skilled PT with progression towards all goals. Patient met goals for strength and HEP but did not meet goals for LEFS, ROM and standing. She does report ability to ambulate and navigate stairs. She is independent with HEP and is appropriate for DC at this time. Plan of Care PT Services Indicated No
== END 2023-03-06 17:05 | disposition home or self-care (01) ==
LOC: CHSPT 15:17
PROVIDERS: PCP Family Medicine; Visit Provider Nurse Practitioner Family
DX: M25.361 Other instability, right knee (principal)
CPT/HCPCS: 36415; 80053; 82248; 82672; 83001; 83002; 84144; 84146; 84402; 84403; 84702; 86592; 86695; 86696; 86803; 87491; 87591; 87661; 87806; 97110; 97140; 97161

== ENCOUNTER 2023-02-23 13:34 | Outpatient (CLI) | payer OTHER, SELFPAY ==
[2023-02-23 14:34] LABS: Alanine Aminotransferase 70 U/L (14-59); Albumin Level 3.4 g/dL (3.4-5.0); Alkaline Phosphatase 103 U/L (46-116); Anion Gap 8 mmol/L (8-16); Aspartate Amino Transferase 33 U/L (15-37); Bilirubin Direct 0.1 mg/dL (0-0.2); Bilirubin,Total 0.5 mg/dL (0.00-1.00); Blood Urea Nitrogen 12 mg/dL (7-18); Calcium 8.8 mg/dL (8.5-10.1); Carbon Dioxide 27 mmol/L (21-32); Chloride 105 mmol/L (98-108); Estimated Glomerular Filt Rate > 60; Glucose 112 mg/dL (70-99); Osmolality Calculated 290 mOsm/kg (285-295); Potassium 3.9 mmol/L (3.5-5.1); Sodium 140 mmol/L (136-145); Total Protein 6.5 g/dL (6.4-8.2)
[2023-02-23 14:36] LABS: Beta HCG Quantitative < 1.00 mIU/mL (0-6)
[2023-02-23 14:38] LABS: HIV 1 P24 AG Negative (Negative); HIV 1/2 AB Negative (Negative)
[2023-02-24 07:46] LABS: Trichomonas Vag PCR NOT DETECTED (NOT DETECTE)
[2023-02-24 08:09] LABS: Chlamydia trachomatis NOT DETECTED (NOT DETECTE); Neisseria gonorrhoeae PCR NOT DETECTED (NOT DETECTE)
[2023-02-26 13:47] LABS: Testosterone Free 1.8 pg/mL (0.1-6.4); Testosterone Total 10 ng/dL (2-45)
[2023-02-26 18:24] LABS: RPR Screen Non-Reactive (Non-Reactive)
[2023-02-27 15:29] LABS: FSH 4.5 mIU/mL (***); LH 0.6 mIU/mL (***); Progesterone 0.4 ng/mL (***); Prolactin 26.6 ng/mL (***)
[2023-02-27 18:53] LABS: Hepatitis C Virus Antibody Nonreactive
[2023-02-28 14:32] LABS: Estrogen 89 pg/mL
== END 2023-02-23 13:35 | disposition home or self-care (01) ==
LOC: CHSLAB 13:35
PROVIDERS: PCP Nurse Practitioner Family; Visit Provider Nurse Practitioner Family
DX: N89.8 Other specified noninflammatory disorders of vagina (principal); Z72.51 High risk heterosexual behavior; R74.8 Abnormal levels of other serum enzymes; R11.2 Nausea with vomiting, unspecified; N92.6 Irregular menstruation, unspecified; O92.70 Unspecified disorders of lactation
CPT/HCPCS: 36415; 80053; 82248; 82672; 83001; 83002; 84144; 84146; 84402; 84403; 84702; 86592; 86695; 86696; 86803; 87491; 87591; 87661; 87806

== ENCOUNTER 2023-04-03 13:28 | Outpatient (CLI) | payer OTHER, SELFPAY ==
--- NOTE | ~2023-04-03 | US_ITS ---
US breast LT limited INDICATION: Palpable left breast lump TECHNIQUE: Dedicated Limited left breast ultrasound COMPARISON: No prior studies for comparison. FINDINGS: The left breast is composed of normal heterogeneous echotexture without focal solid or cyst ic mass. IMPRESSION: 1: Normal limited left breast ultrasound. BI-RADS CATEGORY 1 - NEGATIVE Reviewed, dictated and finalized at location A.
== END 2023-04-03 13:29 | disposition home or self-care (01) ==
LOC: CHSIMG 13:29
PROVIDERS: PCP Nurse Practitioner Family; Visit Provider Nurse Practitioner Family
DX: N63.12 Unspecified lump in the right breast, upper inner quadrant (principal)
CPT/HCPCS: 76642

== ENCOUNTER 2023-04-07 10:58 | Emergency (ER) | payer OTHER, SELFPAY ==
[2023-04-07] VITALS (9 sets, daily range): BP systolic 100–106; BP diastolic 69–72; PULSE 60–90; RESP 16–18; TEMP 36.1–36.6; O2SAT 97–100
--- NOTE | 2023-04-07 11:15 | ED.GENADULT ---
HPI - General Adult General Chief complaint: Nausea/Vomiting/Diarrhea Stated complaint: diarrhea Time Seen by Provider: 04/07/23 11:12 History of Present Illness HPI narrative: Healthy 22yo woman presents to request a work note after 24 hours of watery diarrhea and generalized abdominal cramping got her sent home from work. No fevers, chills, chest pain, dyspnea, bloody stools, or dysuria. Related Data Home Medications Medication Instructions Recorded Confirmed ondansetron HCl 4 mg tablet 4 mg PO Q8H 10/13/22 03/29/23 diphenhydramine HCl 25 mg capsule 25 mg PO QHS PRN 01/03/23 03/29/23 (Allergy (diphenhydramine)) pregabalin 150 mg capsule 150 mg PO BID 02/10/23 03/29/23 Allergies Allergy/AdvReac Type Severity Reaction Status Date / Time naproxen AdvReac Nausea Verified 03/29/23 14:08 monistat AdvReac Severe Irritable Uncoded 03/29/23 14:08 Review of Systems Review of Systems: All systems reviewed & are unremarkable except as noted in HPI and below Constitutional: Constitutional: Denies chills and Denies fever(s) ENT: Denies dysphagia Cardiovascular: Cardiovascular: Denies chest pain Respiratory: Respiratory: Denies dyspnea PMFSH Past Medical History Medical History ADHD Anxiety Borderline personality disorder Depression Hemorrhoids PTSD (post-traumatic stress disorder) Vitamin D deficiency Social History Social History Smoking status: Current every day smoker Tobacco type: e-cigarettes/vaping Smoking end date: 09/19/22 Alcohol intake: never Substance use: current Substance use type: marijuana Living arrangements: with family Occupation/Education: occupation Gender identity (if verbalized by the patient): Female Agree to blood products: Yes Exam Const: General: healthy appearing and no acute distress Nutritional Appearance: well nourished Eyes: Conjunctivae: conjunctivae normal Resp: Effort & Inspection: normal respiratory effort GI: Inspection: non-distended GI Palp: Yes Soft to palpation and No Tenderness to palpation present (GI) Skin: General skin exam: normal color, no jaundice and no pallor Course Vital Signs Vital signs: Vital Signs Temperature 36.6 C 04/07/23 10:58 Pulse Rate 90 04/07/23 10:58 Respiratory Rate 18 04/07/23 10:58 Blood Pressure 100/69 04/07/23 10:58 Pulse Oximetry 97 04/07/23 10:58 Oxygen Delivery Room Air 04/07/23 10:58 Temperature 36.6 C 04/07/23 10:58 Pulse Rate 90 04/07/23 10:58 Respiratory Rate 18 04/07/23 10:58 Blood Pressure 100/69 04/07/23 10:58 Pulse Oximetry 97 04/07/23 10:58 Oxygen Delivery Room Air 04/07/23 10:58 Medical Decision Making MDM Narrative Medical decision making narrative: nonemergent 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 PRNs for comfort Vital Signs Vital Signs: Vital Signs Temperature 36.6 C 04/07/23 10:58 Pulse Rate 90 04/07/23 10:58 Respiratory Rate 18 04/07/23 10:58 Blood Pressure 100/69 04/07/23 10:58 Pulse Oximetry 97 04/07/23 10:58 Oxygen Delivery Room Air 04/07/23 10:58 Temperature 36.6 C 04/07/23 10:58 Pulse Rate 90 04/07/23 10:58 Respiratory Rate 18 04/07/23 10:58 Blood Pressure 100/69 04/07/23 10:58 Pulse Oximetry 97 04/07/23 10:58 Oxygen Delivery Room Air 04/07/23 10:58 Lab Data 04/07/23 11:23 04/07/23 11:23 Labs: Lab Results 04/07/23 04/07/23 Range/Units 11:23 11:39 WBC 7.8 (4.8-10.8) K/mm3 RBC 4.42 (4.20-5.40) M/mm3 Hgb 13.5 (12.0-15.0) g/dL Hct 39.9 (35.0-49.0) % MCV 90.3 (78.0-102.0) fL MCH 30.5 (27.0-31.0) pg MCHC 33.8 (32.0-36.0) g/dL RDW 12.9 (11.6-14.4) % Plt Count 211 (150-420) K/mm3 MPV 10.8 (9.2-11.8) fl Immature Gran % (Auto) 0.1 H (0.0-0.
[2023-04-07 11:27] LABS: Basophils Absolute Auto 0.04 K/mm3 (0.00-0.10); Basophils Percent Auto 0.5 % (0.0-1.0); Eosinophils Absolute Auto 0.21 K/mm3 (0.02-0.50); Eosinophils Percent Auto 2.7 % (1.0-6.0); Hematocrit 39.9 % (35.0-49.0); Hemoglobin 13.5 g/dL (12.0-15.0); Immature Granulocyte Absolute 0.01 K/mm3 (0.00-0.00); Immature Granulocyte Percent A 0.1 % (0.0-0.0); Lymphocytes Absolute Auto 2.04 K/mm3 (1.10-4.50); Mean Corpuscular HGB Conc 33.8 g/dL (32.0-36.0); Mean Corpuscular Hemoglobin 30.5 pg (27.0-31.0); Mean Corpuscular Volume 90.3 fL (78.0-102.0); Mean Platelet Volume 10.8 fl (9.2-11.8); Monocytes Absolute Auto 0.48 K/mm3 (0.10-0.90); Monocytes Percent Auto 6.1 % (2.0-11.0); Neutrophils Absolute Auto 5.1 K/mm3 (1.7-7.2); Neutrophils Percent Auto 64.6 % (50.0-70.0); Platelet Count Result 211 K/mm3 (150-420); Red Blood Count 4.42 M/mm3 (4.20-5.40); Red Cell Distribution Width 12.9 % (11.6-14.4); White Blood Count 7.8 K/mm3 (4.8-10.8)
[2023-04-07] MEDS: SODIUM CHLORIDE 0.9% IV 1,000 ML 999 ML IV CONT (11:29)
[2023-04-07] MEDS: KETOROLAC 30 MG/ML VIAL (*BKC) IV PUSH (11:30)
[2023-04-07] MEDS: diphenhydrAMINE HCl INJ 50 MG/ML VIAL 25 MG IV PUSH (11:31)
[2023-04-07] MEDS: FAMOTIDINE 20 MG/2 ML VIAL 40 MG IV PUSH (11:32)
[2023-04-07 11:45] LABS: Pregnancy On Board Control Positive; Urine Pregnancy Test Negative
[2023-04-07 11:45] LABS: Alanine Aminotransferase 137 U/L (14-59); Albumin Level 3.4 g/dL (3.4-5.0); Alkaline Phosphatase 81 U/L (46-116); Anion Gap 8 mmol/L (8-16); Aspartate Amino Transferase 42 U/L (15-37); Bilirubin,Total 0.5 mg/dL (0.00-1.00); Blood Urea Nitrogen 11 mg/dL (7-18); Calcium 8.9 mg/dL (8.5-10.1); Carbon Dioxide 27 mmol/L (21-32); Chloride 105 mmol/L (98-108); Estimated CRCL calculation 115 ml/min; Estimated Glomerular Filt Rate > 60; Glucose 100 mg/dL (70-99); Lipase 19 U/L (16-77); Osmolality Calculated 289 mOsm/kg (285-295); Potassium 4.2 mmol/L (3.5-5.1); Sodium 140 mmol/L (136-145); Total Protein 6.4 g/dL (6.4-8.2)
--- NOTE | 2023-04-08 11:25 | PC.NURSE ---
pt called back today. c/o abd pain and diarrhea. states she told the doctor that she was allergic to naproxen and he gave her an rx for toradol. today's erp, dr de la o, reviewed case and agrees to stop toradol at this time. to continue the rest of pt plan of care at discharge yesterday. dr de la o also suggested pushing fluids, and eating banannas and yogurt. this information was shared with pt.
== END 2023-04-07 12:52 | disposition home or self-care (01) ==
PROVIDERS: Emergency Provider Emergency Medicine; PCP Nurse Practitioner Family
DX: A09 Infectious gastroenteritis and colitis, unspecified (principal); F17.219 Nicotine dependence, cigarettes, with unspecified nicotine-induced disorders
CPT/HCPCS: 36415; 80053; 81025; 83690; 85025; 96361; 96374; 96375; 99284; J1200; J1885; J7030

== ENCOUNTER 2023-05-08 14:43 | Outpatient (RCR) | payer OTHER, SELFPAY ==
--- NOTE | 2023-05-08 15:38 | OPREHPOC ---
Outpatient Therapy Plan of Care This is a Multidisciplinary Plan of Care that may contain components documented by all disciplines (PT, OT, and ST.) PT Problem 1 PT Problem #1 Knowledge Deficit PT Goal 1 Goal Patient to demonstrate independence with HEP Target Visit 4 PT Problem 2 PT Problem #2 Pain PT Goal 1 Goal 1. Patient to report highest pain at 2/10 2. Patient to report ability to stand up from chair with no increase in L knee pain Target Visit 8 PT Problem 3 PT Problem #3 Impaired Range of Motion PT Goal 1 Goal Patient to demonstrate L knee AROM extension to improve gait mechanics to return to prolonged ambulation at PLOF Target Visit 8 PT Problem 4 PT Problem #4 Impaired Functional Mobil PT Goal 1 Goal 1. Patient to demonstrate 5/5 strength of the L knee to stand for prolonged times at work 2. Patient to improve LEFS scoring by 20% 3. Patient to deny falls
--- NOTE | 2023-05-08 15:38 | PTOPEVAL1 ---
Assessment and note entered by Lilibeth Richardson DPT Evaluation Information Assessment Status Evaluation Diagnosis L knee pain, instability Onset 05/05/23 Subjective Information Patient reports that in the last 2 weeks her L knee has been giving out of her. She reports she has fallen 3 times at work and 4-5 at home. She reports knee is mostly giving out when she is standing up from a lower sitting surface. She reports knee hurts on the lateral and posterior side of the L knee. She reports she has a history of B knee pain but prior to onset of giving out she had improved pain. She reports she works at [employer] and is unable to return to work until she has a written note saying she needs at cane. Reported Pain Level Pain Score 6: Self Report Assessment PT Clinical Summary Ms. Melissa is a 22 year old female who presents to PT with L knee pain and instability. Patient demonstrates decreased L knee ROM, decreased L knee strength and impaired gait mechanincs limiting her ability to get up out of a chair, ambulate prolonged distances and stand for work tasks. She has increased stability with use of quad cane. She would benefit from skilled PT to address impairments and return to PLOF. Plan of Care Interventions Electrical Stimulation,Gait Training,Hot Pack/Cold Pack,Manual Therapy,Neuro Re-education,Patient/ Caregiver Educati,Therapeutic Activities, Therapeutic Exercise PT Services Indicated Yes Treatment Frequency and 2x weekly for 8 visits Duration These treatments will address the objective and functional deficits as defined above. The patient will be advanced safely and appropriately in order for the patient to progress towards his/her prior level of function. Additional exercises will be introduced and as well as a comprehensive home exercise program upon discharge, if needed, ?to ensure carryover of functional gains achieved in the clinic. This treatment plan has been reviewed and agreement upon by the patient.
--- NOTE | 2023-06-14 09:50 | OPREHPOC ---
Outpatient Therapy Plan of Care This is a Multidisciplinary Plan of Care that may contain components documented by all disciplines (PT, OT, and ST.) PT Problem 1 PT Problem #1 Knowledge Deficit PT Goal 1 Goal Patient to demonstrate independence with HEP Target Visit 4 Progress Met PT Problem 2 PT Problem #2 Pain PT Goal 1 Goal 1. Patient to report highest pain at 2/10 2. Patient to report ability to stand up from chair with no increase in L knee pain Target Visit 8 Progress Partially Met PT Problem 3 PT Problem #3 Impaired Range of Motion PT Goal 1 Goal Patient to demonstrate L knee AROM extension to improve gait mechanics to return to prolonged ambulation at PLOF Target Visit 8 Progress Met PT Problem 4 PT Problem #4 Impaired Functional Mobil PT Goal 1 Goal 1. Patient to demonstrate 5/5 strength of the L knee to stand for prolonged times at work 2. Patient to improve LEFS scoring by 20% 3. Patient to deny falls Progress Partially Met
--- NOTE | 2023-06-14 09:51 | PTOPDC ---
Assessment and note entered by Lilibeth Richardson DPT Evaluation Information Assessment Status Re-evaluation Diagnosis L knee pain, instability Onset 05/05/23 Subjective Information Patient reports she has been independent HEP and feels that her knee is stronger. She has had a fall that resulted in L ankle pain but has not been having much knee pain. She is currently working at [employer] with use of cane. She is able to stand for 8 hour shift with 1 break. She does report she is wearing a wear cast at work. Reported Pain Level Pain Score 1: Self Report Assessment PT Clinical Summary Ms. Melissa has attended 7 visits of skilled PT with great progress towards goals. She is no longer limited by L knee pain but rather L ankle pain. She has been able to return to work and has been able to complete 8 hour shifts. She reports she is independent with HEP and is appropriate for DC at this time. Plan of Care PT Services Indicated No
== END 2023-06-14 15:48 | disposition home or self-care (01) ==
LOC: CHSPT 14:43
PROVIDERS: PCP Nurse Practitioner Family; Visit Provider Nurse Practitioner Family
DX: R29.6 Repeated falls (principal); M25.369 Other instability, unspecified knee
CPT/HCPCS: 97014; 97110; 97150; 97161; G0283

== ENCOUNTER 2023-05-16 10:52 | Outpatient (CLI) | payer OTHER, SELFPAY ==
[2023-05-16 11:52] LABS: Beta HCG Quantitative < 1.00 mIU/mL (0-6)
== END 2023-05-16 10:53 | disposition home or self-care (01) ==
LOC: CHSLAB 10:54
PROVIDERS: PCP Nurse Practitioner Family; Visit Provider Nurse Practitioner Family
DX: R11.2 Nausea with vomiting, unspecified (principal)
CPT/HCPCS: 36415; 84702

== ENCOUNTER 2023-06-01 10:24 | Outpatient (CLI) | payer OTHER, SELFPAY ==
--- NOTE | ~2023-06-01 | MR_ITS ---
MRI of the left knee Clinical history: Instability Technique: Coronal proton density and proton density-weighted images, sagittal proton-density and T2 fat-sat images, and axial proton-density fat-saturated images were acquired. Findings: Anterior and posterior cruciate ligaments are intact. Medial collateral ligament and the la teral collateral ligament complex are intact. Popliteus tendon is intact. Medial and lateral menisci are intact, without evidence of tear. Articular cartilage appears well-preserved throughout the knee. Bone marrow signals are unremarkable. Extensor mechanism is intact. No significant joint effusion or Salinas's cyst. Impression: No significant abnormality seen. Reviewed, dictated and finalized at location . ECTIONS IDENTIFICATION TECHNICIAN Impression: No significant abnormality seen.
== END 2023-06-01 10:25 | disposition home or self-care (01) ==
PROVIDERS: PCP Nurse Practitioner Family; Visit Provider Nurse Practitioner Family
DX: R29.6 Repeated falls (principal); M25.369 Other instability, unspecified knee
CPT/HCPCS: 73721

== ENCOUNTER 2023-06-01 11:19 | Emergency (ER) | payer OTHER, SELFPAY ==
--- NOTE | ~2023-06-01 | XR_ITS ---
EXAMINATION: XR ankle LT min 3V DATE: 06/01/2023 11:44 INDICATION: Left ankle injury and pain. TECHNIQUE: 4 views of left ankle were obtained. COMPARISON: None. FINDINGS: Bone alignment is normal. No fracture. Joint spaces are normal. IMPRESSION: 1. Normal left ankle. Reviewed, dictated and finalized at location A. ROOFER IMPRESSION: 1. Normal left ankle.
[2023-06-01 11:19] VITALS: BP 122/103; PULSE 117; RESP 20; TEMP 36.4; O2SAT 96
--- NOTE | 2023-06-01 11:55 | ED.LOWEXIN ---
HPI - Extremity Injury (Lower) General Chief Complaint: Extremity Injury, Lower Stated Complaint: injured ankle Time Seen by Provider: 06/01/23 11:27 Source: patient Mode of arrival: ambulatory Limitations: no limitations History of Present Illness HPI Narrative: this is 22-year-old female that presents after she twisted and rolled her left ankle causing pain tenderness some mild swelling and bruising to the medial aspect of her left ankle has decreased range of motion secondary to pain and inflammation. MD complaint: ankle injury Onset (ago): hour(s) Injury: Left: ankle ( Ankle tender with some swelling) Type of Injury: inversion Place: other Severity: mild Related Data Home Medications Medication Instructions Recorded Confirmed ondansetron HCl 4 mg tablet 4 mg PO Q8H PRN Nausea And Vomiting 10/13/22 05/16/23 diphenhydramine HCl 25 mg capsule 25 mg PO QHS PRN Sleep 01/03/23 05/16/23 (Allergy (diphenhydramine)) pregabalin 150 mg capsule (Lyrica) 150 mg PO BID 02/10/23 05/16/23 acetaminophen 500 mg capsule 1,000 mg PO TID PRN pain 04/07/23 05/16/23 (Mapap (acetaminophen)) risperidone 3 mg tablet (Risperdal) 1.5 mg PO DAILY 04/07/23 05/16/23 hydroxyzine HCl 10 mg tablet 10 mg PO TID PRN Anxiety 04/21/23 05/16/23 pediatric multivitamin no.209 tablet PO 04/21/23 05/16/23 (Children's Multivitamin Gummy chewable tablet) propranolol 20 mg tablet 20 mg PO TID 04/21/23 05/16/23 Allergies Allergy/AdvReac Type Severity Reaction Status Date / Time naproxen AdvReac Nausea Verified 06/01/23 11:27 monistat AdvReac Severe Irritable Uncoded 06/01/23 11:27 Review of Systems Review of Systems: All systems reviewed & are unremarkable except as noted in HPI and below PMFSH Past Medical History Medical History ADHD Anxiety Borderline personality disorder Depression GERD (gastroesophageal reflux disease) IBS (irritable bowel syndrome) Marijuana use PTSD (post-traumatic stress disorder) Vitamin D deficiency Social History Social History Smoking status: Current every day smoker Tobacco type: e-cigarettes/vaping Smoking end date: 09/19/22 Alcohol intake: never Substance use: current Substance use type: marijuana Living arrangements: with family Occupation/Education: occupation Gender identity (if verbalized by the patient): Female Agree to blood products: Yes Exam Const: General: healthy appearing Nutritional Appearance: well nourished Orientation/consciousness: patient oriented x3 Skin: General skin exam: normal color Rashes: no rashes Wounds: wounds noted Neuro: General: patient oriented x3 and moves all extremities Extrem: Other: Tenderness and bruising to the medial aspect of her left ankle Course Course Emergency Course: patient declined pain medication, x-ray reviewed shows acute fractures. Vital Signs Vital signs: Vital Signs Temperature 36.4 C L 06/01/23 11:19 Pulse Rate 117 H 06/01/23 11:19 Respiratory Rate 20 06/01/23 11:19 Blood Pressure 122/103 H 06/01/23 11:19 Pulse Oximetry 96 06/01/23 11:19 Oxygen Delivery Room Air 06/01/23 11:19 Temperature 36.4 C L 06/01/23 11:19 Pulse Rate 117 H 06/01/23 11:19 Respiratory Rate 20 06/01/23 11:19 Blood Pressure 122/103 H 06/01/23 11:19 Pulse Oximetry 96 06/01/23 11:19 Oxygen Delivery Room Air 06/01/23 11:19 Critical Care Time Critical Care Time Critical Care Time: No Discharge Plan Discharge Clinical Impression: Ankle sprain Patient Disposition: Home, Self-Care Condition: Stable Instructions: Antibiotic Form, Ankle Sprain (ED) Additional Instructions: advised to take ibuprofen as needed can continue ice elevation and compression with Keaton wrap and follow up with primary if symptoms persist or worsen after week. Prescriptions: No Action prome
[2023-06-01 12:08] VITALS: BP 120/82; PULSE 119; RESP 20; TEMP 36.6; O2SAT 98
== END 2023-06-01 12:09 | disposition home or self-care (01) ==
LOC: CHSED 12:06
PROVIDERS: Emergency Provider Emergency Medicine; PCP Nurse Practitioner Family
DX: S93.402A Sprain of unspecified ligament of left ankle, initial encounter (principal); F17.290 Nicotine dependence, other tobacco product, uncomplicated; X50.0XXA Overexertion from strenuous movement or load, initial encounter
CPT/HCPCS: 73610; 97110; 97150; 99283

== ENCOUNTER 2023-06-06 09:50 | Outpatient (CLI) | payer OTHER, SELFPAY ==
--- NOTE | 2023-06-26 17:43 | WPDHOMESLEEP ---
Sleep Study - Home Unattended Date of Study: 06/06/23 Ordering Provider: Muna Acosta APRN Interpreting Provider: Rosalba Ruvalcaba, DO Home Sleep Study Type: Watch PAT Height: 1.68 m Weight: 116.12 kg Body Mass Index: 41.3 Neck Circumference (inches): 16.5 Mathews: 14 Reason for Sleep Study Snoring Sleep History The patient has a 22-year-old female with anxiety, depression, GERD, bipolar disorder, ADD, borderline personality disorder, PTSD, irritable bowel syndrome and use of marijuana/ e-cigarettes that had a sleep study ordered by her primary care for evaluation of sleep apnea. The patient frequently awakens from sleep short of breath. She occasionally awakens at night with heartburn, belching or cough. She constantly snores but it is rarely loud enough that others complain. She frequently has trouble sleeping when she has a cold. She constantly wakes up gasping for air throughout the night. She rarely has breathing problems at night observed by herself or others. She denies sweating excessively at night. She occasionally has heart palpitations or irregular heartbeats during the night. She frequently falls asleep during the day but never falls asleep while driving. She frequently has trouble at school or work due to sleepiness. She denies sleep paralysis. She frequently experiences vivid dreamlike scenes upon awakening or falling asleep. She frequently feels afraid of going to sleep. She constantly has nightmares. She frequently remembers her dreams. She occasionally has thoughts racing through her mind. She occasionally feels sad or depressed. She frequently has anxiety. She frequently has muscular tension. She frequently notices parts of her body jerk. She constantly kicks during the night. She frequently has crawling and aching feelings in her legs and frequently has leg pain during the night. She denies grinding her teeth during sleep but frequently awakens with morning jaw pain. She is frequently bothered by pain during the day but rarely awakened by pain during the night. She occasionally wakes up feeling stiff in the morning. She frequently wakes up with sore or achy muscles. She frequently wakes up with pain in the neck, spine and other joints. She goes to bed at 7:00 p.m. on both weekdays and weekends. It takes her 5-15 minutes to fall asleep. She wakes up 3-8 times throughout the night for unknown reasons and it takes 30 minutes for her to fall back asleep. She wakes up at 7:00 a.m. on both weekdays and weekends. She gets anywhere from 3-12 hours of sleep per night. She will stay in bed for 5 minutes after waking up in the morning. She currently lives with her grandparents. She currently works a rotating shift at work. She denies consuming any caffeinated beverages within 2 hours of bedtime. She denies engaging in physical exercise before bedtime. She will read watch television before falling asleep. She will take naps in the afternoon or the evening but they are not refreshing. She denies consuming any caffeinated beverages throughout the day. She is currently using e-cigarettes and marijuana. She denies alcohol use. [facility] Past Medical History Medical History ADHD Anxiety Borderline personality disorder Depression GERD (gastroesophageal reflux disease) IBS (irritable bowel syndrome) Marijuana use PTSD (post-traumatic stress disorder) Vitamin D deficiency Social History Social History Smoking status: Current every day smoker Tobacco type: e-cigarettes/vaping Smoking end date: 09/19/22 Alcohol intake: never Substance use: current Substance use type: marijuana Living arrangements: with family Occupation/Education: occupation Gender identity (if verbalized by the patient): Female Agree to blood products: Yes Medications Home Medications Medication
[2023-06-26 17:57] VITALS: BMI 41.3
== END 2023-06-07 08:00 | disposition home or self-care (01) ==
LOC: ANHCSM 09:51
PROVIDERS: PCP Nurse Practitioner Family; Visit Provider Nurse Practitioner Family
DX: G47.9 Sleep disorder, unspecified (principal); G47.33 Obstructive sleep apnea (adult) (pediatric)
CPT/HCPCS: 95800

== ENCOUNTER 2023-06-17 08:58 | Outpatient (CLI) | payer OTHER, SELFPAY ==
--- NOTE | ~2023-06-17 | MR_ITS ---
. EXAMINATION: MR lumbar spine wo con DATE: 06/17/2023 09:50 INDICATION: Low back pain. TECHNIQUE: Magnetic resonance imaging (MRI) of the lumbar spine was performed without intravenous con trast. COMPARISON: Lumbar spine MRI 11/10/2022 FINDINGS: There is 4 degrees levocurvature of lumbar spine. Vertebral body heights are normal. There is mildly decreased disc height at L4-L5. The distal spinal cord signal intensity is normal. The conu s medullaris is at L1. The following disc levels are specifically discussed: L1-L2: The disc does not extend beyond the endplate margin. There is no facet joint osteoarthritis. T here is no neural foraminal stenosis. There is no central canal stenosis. L2-L3: The disc does not extend beyond the endplate margin. There is mild right facet joint osteoarth ritis. There is no neural foraminal stenosis. There is no central canal stenosis. L3-L4: The disc does not extend beyond the endplate margin. There is mild bilateral facet joint osteo arthritis. There is no neural foraminal stenosis. There is no central canal stenosis. L4-L5: The disc is bulging and has an annular fissure. There is mild left facet joint osteoarthritis. There is mild left neural foraminal stenosis. There is mild central canal stenosis. L5-S1: The disc does not extend beyond the endplate margin. There is mild bilateral facet joint osteo arthritis. There is no neural foraminal stenosis. There is no central canal stenosis. IMPRESSION: 1. Mild lumbar spondylosis, stable from 11/10/2022. Reviewed, dictated and finalized at location A. MAT CAR ATTENDANT
== END 2023-06-17 08:59 | disposition home or self-care (01) ==
PROVIDERS: PCP Nurse Practitioner Family; Visit Provider Nurse Practitioner Family
DX: R29.6 Repeated falls (principal); M54.50 Low back pain, unspecified; M43.06 Spondylolysis, lumbar region
CPT/HCPCS: 72148